=== PATIENT | female | born 1970 | race Two or more races ===

== ENCOUNTER 2017-07-03 05:02 | Emergency (ER) | payer SELFPAY ==
[~2017-07-03] VITALS: Ht 172.7 cm; Wt 62.0 kg
[2017-07-03 09:52] VITALS: BP 122/59
== END 2017-07-03 09:53 | disposition home or self-care (01) ==
LOC: ER 05:02
DX: M62.830 Muscle spasm of back (principal); M54.2 Cervicalgia; F17.200 Nicotine dependence, unspecified, uncomplicated; V89.2XXA Person injured in unspecified motor-vehicle accident, traffic, initial encounter; Y93.89 Activity, other specified; Y92.89 Other specified places as the place of occurrence of the external cause; Y99.8 Other external cause status
CPT/HCPCS: 72040; 99284